=== PATIENT | female | born 1945 | race Caucasian/White ===

== ENCOUNTER 2019-07-08 19:00 | Emergency (ER) | payer MEDICARE, OTHER ==
--- NOTE | 2019-07-08 19:19 | ED Physician Documentation ---
History of Present Illness - Stated complaint Stated Complaint: GLF/HEAD PX - Chief complaint Chief Complaint: [facility] PD PAST MEDICAL HISTORY - Allergies Allergies/Adverse Reactions: Allergies Allergy/AdvReac Type Severity Reaction Status Date / Time No Known Drug Allergies Allergy Verified 07/08/19 19:04 Results - Vitals Vitals: Vital Signs - 24 hr 07/08/19 19:04 Temperature 36.5 C Heart Rate 63 Respiratory 16 Rate Blood Pressure 151/85 H O2 Saturation 97 Oxygen O2 Source Room air
--- NOTE | 2019-07-08 20:17 | CT Report ---
Reason: Fall and LOC Procedure Date: 07/08/2019 Accession Number: [id number] / [id number] Procedure: CT - CERVICAL SPINE WO CPT Code: FULL RESULT: EXAM: CT CERVICAL SPINE WITHOUT CONTRAST DATE: 07/08/2019 07:56 PM. HISTORY: 74-year-old female. Fall and LOC. COMPARISONS: None. TECHNIQUE: Thin-section axial images were acquired of the cervical spine without contrast. Post-processing: Coronal and sagittal reformats. Other: None. In accordance with CT protocol optimization, one or more of the following dose reduction techniques were utilized for this exam: automated exposure control, adjustment of mA and/or KV based on patient size, or use of iterative reconstructive technique. FINDINGS: Alignment: No scoliosis or spondylolisthesis. Bones: No fracture or bone lesion. Interspace Levels/Facets: C1-C2: Unremarkable. C2-C3: Moderate bilateral facet arthropathy. Mild diffuse disk. Mild central canal narrowing. No bony foraminal. C3-C4: Mild disk height loss. Moderate bilateral facet arthropathy. Moderate bilateral uncovertebral spurring. No significant central canal narrowing. Moderate bilateral foraminal narrowing. C4-C5: Moderate disk height loss with moderate posterior disk osteophyte complex. Moderate bilateral uncovertebral spurring. Mild central canal narrowing. Moderate to severe bilateral foraminal narrowing. C5-C6: Mild disk height loss. Small posterior disk osteophyte complex. Moderate bilateral uncovertebral spurring. No significant central canal entered. Mild bilateral foraminal narrowing. C6-C7: Moderate left and mild right facet arthropathy. No significant bony central canal or foraminal narrowing. C7-T1: Unremarkable. Musculature: Normal. No fatty atrophy. Other: The paravertebral and prevertebral soft tissues are unremarkable. IMPRESSION: No acute fracture or traumatic subluxation. No prevertebral soft tissue swelling. Moderate multilevel degenerative spondylosis, as detailed above. RADIA
[2019-07-08 20:19] LABS: BILIRUBIN,URINE NEGATIVE (NEGATIVE); GLUCOSE, URINE (UA) NEGATIVE (NEGATIVE); KETONES,URINE (UA) NEGATIVE (NEGATIVE); LEUKOCYTE ESTERASE, URINE NEGATIVE (NEGATIVE); NITRITE,URINE NEGATIVE (NEGATIVE); OCCULT BLOOD,URINE NEGATIVE (NEGATIVE); PH,URINE 6.5 PH (5.0-7.5); PROTEIN,URINE NEGATIVE (NEGATIVE); UROBILINOGEN,URINE 0.2 (NORMAL) E.U./dL (NORMAL)
[2019-07-08 20:21] LABS: CLARITY,URINE CLEAR (CLEAR)
--- NOTE | 2019-07-08 20:32 | CT Report ---
Reason: Fall and LOC Procedure Date: 07/08/2019 Accession Number: [id number] / [id number] Procedure: CT - HEAD WO CPT Code: FULL RESULT: EXAM: CT HEAD EXAM DATE: 07/08/2019 07:56 PM. CLINICAL HISTORY: 74-year-old female. Fall and LOC. COMPARISON: None. TECHNIQUE: Multiaxial CT images were obtained from the foramen magnum to the vertex. Reformats: Sagittal and coronal. IV contrast: None. In accordance with CT protocol optimization, one or more of the following dose reduction techniques were utilized for this exam: automated exposure control, adjustment of mA and/or KV based on patient size, or use of iterative reconstructive technique. FINDINGS: Parenchyma: The patient is status post prior bilateral pterional craniotomies with aneurysm clips at the MCA bifurcations bilaterally. No intraparenchymal hemorrhage. No evidence of mass, midline shift, or CT findings of acute infarction. Fraser-white differentiation is distinct. Diffuse chronic microangiopathic white matter changes are evident. Cystic encephalomalacia right frontal operculum. Extraaxial Spaces: Normal for age. No subdural or epidural collections identified. Ventricles: The ventricles and cortical sulci are enlarged, consistent with age-related tissue loss. Sinuses and orbits: Polypoid mucosal thickening maxillary sinuses bilaterally. Remaining Imaged paranasal sinuses, orbits, and mastoids show no significant abnormality. Bones: No evidence of fracture status post bilateral pterional craniotomy. Hyperostosis frontalis interna. Other: Anterolateral left frontal scalp soft tissue hematoma. No underlying fracture. IMPRESSION: 1. Generalized age-related cortical atrophic changes without evidence of acute intracranial abnormality. 2. Anterolateral left frontal scalp soft tissue hematoma. No underlying fracture. 3. The patient is status post prior bilateral pterional craniotomies with aneurysm clips at the MCA bifurcations bilaterally. Cystic encephalomalacia right frontal operculum. RADIA
--- NOTE | 2019-07-08 21:25 | ED Physician Documentation ---
History of Present Illness - Stated complaint Stated Complaint: GLF/HEAD PX - Chief complaint Chief Complaint: Heent - Additonal information Additional information: This is a 74-year-old female with a history of a aneurysm s/p surgery many years ago, as well as a stroke with some residual mild left-sided weakness, who presents after fall. Patient with her son today and she was walking in the home and she tripped over a rug landing on her left side of her head. She denies any chest pain, she has some soreness in the base of her neck, and she does have pain over the left side of her head. Her son said that she was dazed immediately after the fall, and she did not remember the event. An hour or 2 later she told him that she had some swelling in her head and she does not remember falling at all, so he brought her here for further evaluation. She currently is feeling well and according to the son is back to her baseline. She denies chest pain, fever, dysuria, shortness of breath. Review of Systems Constitutional: denies: Fever Eyes: denies: Loss of vision Cardiac: denies: Chest pain / pressure Respiratory: denies: Dyspnea GI: denies: Abdominal Pain : denies: Dysuria Skin: reports: Other (Hematoma to head) Musculoskeletal: denies: Extremity pain Neurologic: denies: Generalized weakness Immunocompromised: denies: Immunocompromised PD PAST MEDICAL HISTORY - Past Medical History Cardiovascular: Hypertension, High cholesterol Musculoskeletal: Chronic back pain - Past Surgical History General: Bowel surgery Ortho: Spine surgery Neuro: Other - Present Medications Home Medications: Ambulatory Orders Medication Instructions Recorded Confirmed Aspirin 07/08/19 Gabapentin 07/08/19 Hydrochlorothiazide 07/08/19 Lisinopril 07/08/19 Morphine Sulfate [Ms Contin] 07/08/19 Omeprazole 07/08/19 Sertraline [Zoloft] 07/08/19 Simvastatin 07/08/19 buPROPion [Wellbutrin Sr] 07/08/19 - Allergies Allergies/Adverse Reactions: Allergies Allergy/AdvReac Type Severity Reaction Status Date / Time No Known Drug Allergies Allergy Verified 07/08/19 19:04 - Social History Does the pt smoke?: No Smoking Status: Never smoker PD ED PE NORMAL - Vitals Vital signs reviewed: Yes - General General: Alert and oriented X 3, No acute distress - HEENT HEENT: Other (There is a 4 cm x 3 cm, and area of tenderness over the left frontal temporal region of the head. There is no overlying laceration. Extraocular muscles are intact, there is no anterior facial tenderness. 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 Otherwise patient hs 5/5 strength in all muscle groups symmetrically bilaterally.) - Psych Psych: Normal mood, Normal affect Results - Vitals Vitals: Vital Signs - 24 hr 07/08/19 07/08/19 19:04 21:29 Temperature 36.5 C Heart Rate 63 69 Respiratory 16 18 Rate Blood Pressure 151/85 H 136/78 H O2 Saturation 97 98 Oxygen O2 Source Room air - Labs Labs: Laboratory Tests 07/08/19 20:10 Urine Color YELLOW Urine Clarity CLEAR Urine pH 6.5 Ur Specific [place] 1.010 Urine Protein NEGATIVE Urine Glucose (UA) NEGATIVE Urine Ketones NEGATIVE Urine Occult Blood NEGATIVE Urine Nitrite NEGATIVE Urine Bilirubin NEGATIVE Urine Urobilinogen 0.2 (NORMAL) Ur Leukocyte Esterase NEGATIVE Ur Microscopic Review NOT INDICATED Urine Culture Comments NOT INDICATED - Rads (name of study) CT head WO Radiology: Other (No acute Intracranial bleed or fracture. Signs of past aneurysm.) CT c spine Radiology: Other (No fracture or dislocation.) PD MEDICAL DECISION MAKING - ED course Complexity details: considered differential (ICH, contusion, concussion, hematoma, fracture) ED course: Pt presents after a mechanical fall tripping on the edge of a rug with head trauma. She is neurologically intact with only slight baseline left-sided weakness from a past CVA. CT head and C spine are negative for acute abnormality. UA obtained though patient is asymptomatic, and is negative. Patient continues to feel well and has no new symptoms. I discussed that she likely has a concussion and reviewed concussion care. I reviewed strict return precautions and PCP follow up and patient was discharged in the care of her son. Departure - Departure Disposition: 01 Home, Self Care Clinical Impression: Hematoma Concussion Qualifiers: Encounter type: initial encounter Loss of consciousness presence/duration: with LOC of unspecified duration Qualified Code(s): S06.0X9A - Concussion with loss of consciousness of unspecified duration, initial encounter Condition: Good Instructions: ED Concussion, ED Hematoma Follow-Up: Romi Wise MD [Primary Care Provider] - Within 1 week (For follow up on concussion and hematoma.) Comments: You were seen today because you fell and hit your head, we do not see signs of bleed or fracture in the head, you do have a collection of blood over your scalp (a hematoma) that will take time to resorb. You may ice this area, and take some Tylenol for discomfort. If you develop weakness, numbness, confusion, return to the emergency department. Otherwise please follow-up with your primary care provider. Discharge Date/Time: 07/08/19 21:29
[2019-07-08 21:29] VITALS: BP 136/78
== END 2019-07-08 21:29 | disposition home or self-care (01) ==
LOC: ED 19:00
DX: T14.8XXA Other injury of unspecified body region, initial encounter (principal); S06.0X9A Concussion with loss of consciousness of unspecified duration, initial encounter; W01.0XXA Fall on same level from slipping, tripping and stumbling without subsequent striking against object, initial encounter; Y93.01 Activity, walking, marching and hiking; Y92.009 Unspecified place in unspecified non-institutional (private) residence as the place of occurrence of the external cause; I10 Essential (primary) hypertension
CPT/HCPCS: 70450; 72125; 81001; 81003; 87086; 99282; 99284